=== PATIENT | female | born 1970 | race African-American/Black ===

== ENCOUNTER 2022-03-18 21:36 | Emergency (ER) | payer MEDICAID ==
[~2022-03-18] VITALS: Ht 165.1 cm; Wt 72.6 kg
[2022-03-18 21:38] VITALS: BP_SYST 135
--- NOTE | 2022-03-18 21:50 | NUR ---
PATIENT BROUGHT IN FOR MEDICAL CLEARANCE FOR HISTORY OF ANXIETY AND DEPRESSION. DENIES ANY PHYSICAL INJURIES OR PAIN.
--- NOTE | 2022-03-18 21:55 | NUR ---
ER at bedside examining patient.
[2022-03-18] MEDS ORDERED: DIPHENHYDRAMINE HCL 12.5 MG/5 ML UDC PO ONE (22:00)
[2022-03-18] MEDS ORDERED: ALPRAZolam 0.25 MG TABLET PO ONE (22:00)
--- NOTE | 2022-03-18 22:06 | NUR ---
Patient and deputy brooks given written and verbal discharge instructions and verbalizes understanding. ER MD discussed with patient the results and treatment provided. Patient in stable condition. ID arm band removed. Rx of given. Patient educated on pain management and to follow up with PMD. Pain Scale 0/10 Opportunity for questions provided and answered. Medication side effect fact sheet provided.
[2022-03-19 00:17] VITALS: BP_SYST 135
== END 2022-03-19 00:17 ==
LOC: SED 21:36
DX: Z02.89 Encounter for other administrative examinations (principal); F41.9 Anxiety disorder, unspecified; Z79.899 Other long term (current) drug therapy
CPT/HCPCS: 99283